=== PATIENT | female | born 1955 | race Caucasian/White ===

== ENCOUNTER 2022-04-15 13:50 | Day surgery (SDC) | payer MEDICARE ==
[~2022-04-15] VITALS: Ht 162.6 cm; Wt 111.9 kg
[~2022-04-15 13:50] MED LIST: ATOR80 PO; CYCL10 PO; Crutch1 EACH MISC; FAMO40 PO; GABA600 PO; GLUCAGEN; HYDR1TAB94 PO; INSLIS75I; LEVSOD75 PO; LISI5 PO; MELO7.5 PO; METF500 PO; OXYACE5T PO; OXYB5ER PO; Omeprazole20 M1 PO; Percocet 5-3251 EACH PO; Prozac20 MG PO; [UNRECOGNIZED DRUG - OTHER]
[2022-04-15] MEDS ORDERED: Budeprion Xl300 MG PO (14:51)
--- NOTE | 2022-04-15 16:27 | NUR ---
04/15/22 1627 rDiss Ramirez 15ML OF BUPIVICAINE 0.75% MIXED 1:1 WITH 15MLS OF BUPIVICAINE 0.25% TO CREATE A SOLUTION OF BUPIVICAINE 0.5%. 0.15ML OF EPI 1MG/ML ADDED TO BUPIVICAINE 0.5% TO CREATE BUPIVICAINE 0.5% WITH EPI 1:200,000.
--- NOTE | 2022-04-15 17:21 | NUR ---
04/15/22 1721 SHAYNE SHAH DC AT 1720 PT SATS AT 100% RA
--- NOTE | 2022-04-15 17:44 | NUR ---
04/15/221743 Dora Blanco PT IN RECLINER WITH AT CHAIRSIDE. VSS. PT TOLERATING PO FLUIDS AND SNACKS WELL. PT DENIES NAUSEA. PT RATES PAIN AT THE OP SITE 12/30. RN TREATED WITH IV PAIN MEDICATION PER 'S ORDERS. OP LIMB IS ELEVATED ON A PILLOW, ICE BEHIND THE KNEE. RN IS PROVIDING POST OP DISCHARGE INSTRUCTIONS TO PT AND PT'S NOW. RN WILL PROVIDE TEACHING R/T THE INCENTIVE SPIROMETER. CALL LIGHT IN REACH.
== END 2022-04-15 18:07 | disposition home or self-care (01) ==
LOC: ORSCSDS 13:50
PROVIDERS: Podiatrist Foot & Ankle Surgery
PROC: 0SGJ04Z Fusion of Left Tarsal Joint with Internal Fixation Device, Open Approach (ICD-10-PCS; principal; 2022-04-15 15:15)
PROC: 0SGQ04Z Fusion of Left Toe Phalangeal Joint with Internal Fixation Device, Open Approach (ICD-10-PCS; principal; 2022-04-15 15:15)
PROC: 0QSP04Z Reposition Left Metatarsal with Internal Fixation Device, Open Approach (ICD-10-PCS; principal; 2022-04-15 15:15)
DX: M21.612 Bunion of left foot (principal); M20.42 Other hammer toe(s) (acquired), left foot; E66.01 Morbid (severe) obesity due to excess calories; Z68.41 Body mass index [BMI] 40.0-44.9, adult; Z79.899 Other long term (current) drug therapy; E10.9 Type 1 diabetes mellitus without complications; E03.9 Hypothyroidism, unspecified; Z79.4 Long term (current) use of insulin
CPT/HCPCS: 82947; A9270; C1713; J0171; J0690; J1100; J2250; J2310; J2370; J2405; J2704; J2765; J3010; J7120